=== PATIENT | female | born 1990 | race American Indian/Alaskan Native ===

== ENCOUNTER 2022-06-22 18:27 | Inpatient (IN) | payer SELFPAY ==
[2022-06-22] MEDS ORDERED: SODIUM CHLORIDE 0.9% 500 ML 500 ML IV ONE ×2 (18:46→20:30)
--- NOTE | 2022-06-22 19:14 | XRay Report ---
CHEST 1 VIEW INDICATION: possible Sepsis. COMPARISON: None FINDINGS: SUPPORT DEVICES: None. HEART: Within normal limits. LUNGS/PLEURA: Minimal streaky airspace disease in the right lower lobe with otherwise clear lungs. No pleural effusion. ADDITIONAL FINDINGS: None. IMPRESSION: 1. Lung findings as above. Signer Name: Maco Jackson MD Signed: 06/22/2022 7:09 PM Workstation Name: [id number]
[2022-06-22] MEDS ORDERED: ALBUTEROL 2.5 MG/3 ML NEBU IH ONE ×2 (19:21→20:29)
[2022-06-22] MEDS ORDERED: IPRATROPIUM 0.02% NEBU 2.5 ML IH ONE ×2 (19:21→20:29)
[2022-06-22 19:24] LABS: Basophils % (Auto) 0.4 % (0.0-1.8); Eosinophils % (Auto) 0.7 % (0.0-4.3); Hematocrit 32.6 % (30.3-42.9); Hemoglobin 10.4 gm/dl (10.1-14.3); Lymphocytes # (Auto) 0.6 K/mm3 (1.2-5.4); Lymphocytes % (Auto) 9.2 % (13.4-35.0); Mean Corpuscular HGB Conc 32 % (30-34); Mean Corpuscular Volume 73 fl (79-97); Monocytes # (Auto) 0.9 K/mm3 (0.0-0.8); Monocytes % (Auto) 13.3 % (0.0-7.3); Platelet Count 261 K/mm3 (140-440); Red Blood Count 4.46 M/mm3 (3.65-5.03)
[2022-06-22 19:32] LABS: INR 1.04 (0.87-1.13)
[2022-06-22 19:39] LABS: Alanine Aminotransferase 11 units/L (7-56); Blood Urea Nitrogen 6 mg/dL (7-17); Calcium 8.8 mg/dL (8.4-10.2); Hemolysis Index 11
[2022-06-22 19:54] LABS: BUN/Creatinine Ratio 9
[2022-06-22] MEDS ORDERED: ACETAMINOPHEN 500 MG TAB PO ONE (20:22)
[2022-06-22] MEDS ORDERED: methylPREDNISolone Sod Succinate 125 MG/2 ML INJ IV ONE (20:29)
[2022-06-22] MEDS ORDERED: AZITHROMYCIN/NS 500 MG/250 ML 500 MG/250 ML BAG IV ONE (20:30)
[2022-06-22] MEDS ORDERED: cefTRIAXone/NS 1 GM/50 ML 1 GM/50 ML BAG IV ONE (20:30)
--- NOTE | 2022-06-22 20:32 | Emergency Department Report ---
ED General Adult HPI - General Chief complaint: Dyspnea/Respdistress Stated complaint: ASHTMA ATTACK PUI?: Yes Time Seen by Provider: 06/22/22 20:21 Source: patient, RN notes reviewed Mode of arrival: Ambulatory Limitations: Physical Limitation - History of Present Illness Initial comments: The patient was evaluated in the emergency department for symptoms described in the history of present illness. He/she was evaluated in the context of the global COVID-19 pandemic, which necessitated consideration that the patient might be at risk for infection with the virus that causes COVID-19. Institutional protocols and algorithms that pertain to the evaluation of patients at risk for COVID-19 are in a state of rapid change based on information released by regulatory bodies including the CDC and federal and state organizations. These policies and algorithms were followed during the patient's care in the emergency department. Please note that these policies, procedures and recommendations changed on a rapid basis. During the history and physical examination, I had on complete personal protective equipment. This is a 32-year-old female who states that she is not vaccinated against COVID-19. She has a history of asthma, reactive airways disease, reports that she is not , consumes marijuana and tobacco. She recently relocated here from [place] in December/January of this year. She does not have a local primary care doctor. She presents to the ER today with a complaint of cough, wheezing, fever, shortness of breath x1 day. There is no lifetime history of intubation. She reports that she has been admitted for reactive airways disease in the past She denies loss of taste and smell. Denies sick contacts -: Gradual, days(s) Severity scale (0 -10): 10 Consistency: constant Improves with: rest Worsens with: movement - Related Data Allergies Allergy/AdvReac Type Severity Reaction Status Date / Time No Known Allergies Allergy Unverified 06/22/22 18:38 ED Review of Systems ROS: Stated complaint: ASHTMA ATTACK Other details as noted in HPI Constitutional: chills, fever, malaise, weakness Eyes: denies: vision change ENT: congestion. denies: epistaxis Respiratory: cough, shortness of breath, SOB with exertion, SOB at rest, wheezing Cardiovascular: denies: chest pain Gastrointestinal: denies: abdominal pain, nausea, vomiting Musculoskeletal: myalgia Neurological: weakness ED Past Medical Hx - Past Medical History Hx Asthma: Yes Additional medical history: BRONCHITIS - Surgical History Additional Surgical History: C SECTION ED Physical Exam - General Limitations: No Limitations General appearance: alert, anxious, in distress, obese - Head Head exam: Present: atraumatic, normocephalic - Eye Eye exam: Present: normal appearance, EOMI. Absent: nystagmus - ENT ENT exam: Present: normal exam, normal orophraynx, mucous membranes moist, no rmal external ear exam - Neck Neck exam: Present: normal inspection, full ROM. Absent: tenderness, meningismus - Respiratory Respiratory exam: Present: respiratory distress, wheezes, rhonchi. Absent: decreased breath sounds - Cardiovascular Cardiovascular Exam: Present: normal rhythm, tachycardia, normal heart sounds. Absent: bradycardia, irregular rhythm, systolic murmur, diastolic murmur, rubs, gallop - GI/Abdominal GI/Abdominal exam: Present: soft. Absent: distended, tenderness, guarding, rebound, rigid, pulsatile mass - Extremities Exam Extremities exam: Present: normal inspection, full ROM, other (2+ pulses noted in the bilateral upper and lower extremities. There is no palpable cord. negative Homans sign. Muscular compartments are soft. The pelvis is stable.). Absent: pedal edema, calf tenderness - Back Exam Back exam: Present: normal inspection. Absent: tenderness, CVA tenderness (R), CVA tenderness (L), paraspinal tenderness, vertebral tenderness - Neurological Exam Neurological exam: Present: alert, other (There is no facial droop. The tongue is midline. EOMI. 5/5 strength in 4 extremities) - Psychiatric Psychiatric exam: Present: anxious - Skin Skin exam: Present: warm, dry, intact, normal color. Absent: rash ED Course Vital Signs 06/22/22 18:40 Temperature 102.7 F H Pulse Rate 138 H Respiratory 24 Rate Blood Pressure 140/90 [Right] O2 Sat by Pulse 98 Oximetry ED Medical Decision Making - Lab Data Result diagrams: 06/22/22 19:08 06/22/22 19:08 Vital Signs 06/22/22 18:40 Temperature 102.7 F H Pulse Rate 138 H Respiratory 24 Rate Blood Pressure 140/90 [Right] O2 Sat by Pulse 98 Oximetry Lab Results 06/22/22 06/22/22 06/22/22 Range/Units 19:08 19:08 19:08 WBC 6.7 (4.5-11.0) K/mm3 RBC 4.46 (3.65-5.03) M/mm3 Hgb 10.4 (10.1-14.3) gm/dl Hct 32.6 (30.3-42.9) % MCV 73 L (79-97) fl MCH 23 L (28-32) pg MCHC 32 (30-34) % RDW 18.0 H (13.2-15.2) % Plt Count 261 (140-440) K/mm3 Lymph % (Auto) 9.2 L (13.4-35.0) % [place] % (Auto) 13.3 H (0.0-7.3) % Eos % (Auto) 0.7 (0.0-4.3) % Baso % (Auto) 0.4 (0.0-1.8) % Lymph # (Auto) 0.6 L (1.2-5.4) K/mm3 [place] # (Auto) 0.9 H (0.0-0.8) K/mm3 Eos # (Auto) 0.0 (0.0-0.4) K/mm3 Baso # (Auto) 0.0 (0.0-0.1) K/mm3 Seg Neutrophils % 76.4 H (40.0-70.0) % Seg Neutrophils # 5.1 (1.8-7.7) K/mm3 PT 14.8 (12.2-14.9) Sec. INR 1.04 (0.87-1.13) VBG pH (7.320-7.420) Sodium 133 L (137-145) mmol/L Potassium 3.5 L (3.6-5.0) mmol/L Chloride 103.3 (98-107) mmol/L Carbon Dioxide 20 L (22-30) mmol/L Anion Gap 13 mmol/L BUN 6 L (7-17) mg/dL Creatinine 0.7 (0.6-1.2) mg/dL Estimated GFR > 60 ml/min BUN/Creatinine Ratio 9 % Glucose 141 H (65-100) mg/dL Lactic Acid (0.7-2.0) mmol/L Calcium 8.8 (8.4-10.2) mg/dL Total Bilirubin 0.40 (0.1-1.2) mg/dL AST 15 (5-40) units/L ALT 11 (7-56) units/L Alkaline Phosphatase 139 H (35-129) units/L Total Protein 6.4 (6.3-8.2) g/dL Albumin 4.0 (3.9-5) g/dL Albumin/Globulin Ratio 1.7 % 06/22/22 06/22/22 Range/Units 19:08 19:08 WBC (4.5-11.0) K/mm3 RBC (3.65-5.03) M/mm3 Hgb (10.1-14.3) gm/dl Hct (30.3-42.9) % MCV (79-97) fl MCH (28-32) pg MCHC (30-34) % RDW (13.2-15.2) % Plt Count (140-440) K/mm3 Lymph % (Auto) (13.4-35.0) % [place] % (Auto) (0.0-7.3) % Eos % (Auto) (0.0-4.3) % Baso % (Auto) (0.0-1.8) % Lymph # (Auto) (1.2-5.4) K/mm3 [place] # (Auto) (0.0-0.8) K/mm3 Eos # (Auto) (0.0-0.4) K/mm3 Baso # (Auto) (0.0-0.1) K/mm3 Seg Neutrophils % (40.0-70.0) % Seg Neutrophils # (1.8-7.7) K/mm3 PT (12.2-14.9) Sec. INR (0.87-1.13) VBG pH 7.401 (7.320-7.420) Sodium (137-145) mmol/L Potassium (3.6-5.0) mmol/L Chloride (98-107) mmol/L Carbon Dioxide (22-30) mmol/L Anion Gap mmol/L BUN (7-17) mg/dL Creatinine (0.6-1.2) mg/dL Estimated GFR ml/min BUN/Creatinine Ratio % Glucose (65-100) mg/dL Lactic Acid 1.90 (0.7-2.0) mmol/L Calcium (8.4-10.2) mg/dL Total Bilirubin (0.1-1.2) mg/dL AST (5-40) units/L ALT (7-56) units/L Alkaline Phosphatase (35-129) units/L Total Protein (6.3-8.2) g/dL Albumin (3.9-5) g/dL Albumin/Globulin Ratio % - Radiology Data Radiology results: pending, report reviewed, image reviewed CHEST 1 VIEW INDICATION: possible Sepsis. COMPARISON: None FINDINGS: SUPPORT DEVICES: None. HEART: Within normal limits. LUNGS/PLEURA: Minimal streaky airspace disease in the right lower lobe with otherwise clear lungs. No pleural effusion. ADDITIONAL FINDINGS: None. IMPRESSION: 1. Lung findings as above. Signer Name: Maco Jackson MD Signed: 06/22/2022 6:09 PM - Medical Decision Making Differential diagnosis, including but not limited to: Pneumonia, reactive airways disease, COVID-19, systemic inflammatory response syndrome Assessment and plan: 32-year-old female who is not COVID-19 vaccinated, presenting with acute asthma exacerbation, complicated by acute febrile illness and right lower lobe pneumonia/systemic inflammatory response syndrome. Placed patient on isolation. Obtain appropriate laboratory studies; they reviewed and appreciated. Albuterol, Atrovent, steroids, ceftriaxone and azithromycin. Start gentle IV fluids, and Tylenol for fever and/or pain. At the moment, do not have access to experience rapid COVID-19 testing. Given concern for potential COVID-19, and propensity for COVID-19 patients to develop acute respiratory distress syndrome, hold 30 cc/kg bolus of IV fluid. Patient is agreeable to admission and hospitalization. Hospital physician, Dr. Greg Amin to admit to [facility] Critical Care Time: Yes Critical care time in (mins) excluding proc time.: 35 Critical care attestation.: If time is entered above; I have spent that time in minutes in the direct care of this critically ill patient, excluding procedure time. ED Disposition Clinical Impression: Acute asthma exacerbation, Suspected COVID-19 virus infection, Systemic inflammatory response syndrome (SIRS), COVID-19 vaccination not done, Marijuana use Disposition: ADMITTED INPATIENT Is pt being admited?: Yes Does the pt Need Aspirin: No Condition: Good
[2022-06-22] MEDS ORDERED: MORPHINE 4 MG/1 ML INJ IV PRN (22:11)
[2022-06-22] MEDS ORDERED: MAGNESIUM HYDROXIDE (MOM) ORAL LIQD UDC PO PRN (22:11)
[2022-06-22] MEDS ORDERED: ONDANSETRON 4 MG/2 ML INJ IV PRN (22:11)
[2022-06-22] MEDS ORDERED: ACETAMINOPHEN 325 MG TAB PO PRN (22:11)
[2022-06-22] MEDS ORDERED: MORPHINE 2 MG/1 ML INJ IV PRN (22:11)
--- NOTE | 2022-06-22 22:19 | History and Physical Report ---
History of Present Illness Date of examination: 06/22/22 Date of admission: 06/22/2022 Chief complaint: Cough Fever History of present illness: 32-year-old -[place] female with known history of asthma and who is not vaccinated against COVID 19 presenting to the emergency room today complaining of cough, fever and chills over the last 24 hours. Patient denies any chest pain, no headache or dizziness, no diaphoresis. Denies any nausea or vomiting and no abdominal pain. She indicates she just relocated to [place] from [place] about 4 months ago. Denies any sick contacts. Upon arrival via in the emergency room, patient was found to be tachycardic and tachypneic. She was also found to be wheezing. She subsequently received nebulizing treatment with significant improvement. Patient admits to occasional use of marijuana and tobacco. Work-up in the emergency room today, chest x-ray shows minimal streaky airspace disease in the right lower lobe. Labs shows mild hypokalemia of 3.5. Patient placed on empiric IV antibiotics. Past History Past Medical History: other (Asthma) Past Surgical History: Social history: alcohol abuse Medications and Allergies Allergies Allergy/AdvReac Type Severity Reaction Status Date / Time No Known Allergies Allergy Unverified 06/22/22 18:38 Review of Systems Constitutional: fever, chills Ears, nose, mouth and throat: no nasal congestion, no sore throat Cardiovascular: no chest pain, no palpitations Respiratory: cough, shortness of breath, wheezing Gastrointestinal: no abdominal pain, no nausea, no vomiting, no diarrhea Genitourinary Female: no pelvic pain, no flank pain, no dysuria, no hematuria Musculoskeletal: no neck pain, no low back pain Integumentary: no rash, no pruritis Neurological: no headaches, no confusion Psychiatric: no anxiety, no depression Endocrine: no polyphagia, no polydipsia, no polyuria, no nocturia Exam - Constitutional Vitals: Temp Pulse Resp BP Pulse Ox 102.7 F H 138 H 24 140/90 98 06/22/22 18:40 06/22/22 18:40 06/22/22 18:40 06/22/22 18:40 06/22/22 18:40 General appearance: Present: no acute distress, well-nourished - EENT Eyes: Present: PERRL, EOM intact. Absent: scleral icterus ENT: hearing intact, clear oral mucosa, dentition normal - Neck Neck: Present: supple, normal ROM - Respiratory Respiratory effort: normal Respiratory: bilateral: wheezing - Cardiovascular Rhythm: regular Heart Sounds: Present: S1 & S2. Absent: gallop, systolic murmur, diastolic murmur, rub, click - Extremities Extremities: no ischemia, pulses intact, pulses symmetrical, No edema, normal temperature, normal color, Full ROM Peripheral Pulses: within normal limits - Abdominal General gastrointestinal: Present: soft, non-tender, non-distended, normal bowel sounds. Absent: mass - Integumentary Integumentary: Present: clear, warm, dry, normal turgor. Absent: rash - Musculoskeletal Musculoskeletal: strength equal bilaterally - Psychiatric Psychiatric: appropriate mood/affect, intact judgment & insight, memory intact, cooperative - Neurologic Neurologic: CNII-XII intact Results - Labs CBC & Chem 7: 06/22/22 19:08 06/22/22 19:08 Labs: Abnormal lab results 06/22/22 06/22/22 Range/Units 19:08 19:08 MCV 73 L (79-97) fl MCH 23 L (28-32) pg RDW 18.0 H (13.2-15.2) % Lymph % (Auto) 9.2 L (13.4-35.0) % [place] % (Auto) 13.3 H (0.0-7.3) % Lymph # (Auto) 0.6 L (1.2-5.4) K/mm3 [place] # (Auto) 0.9 H (0.0-0.8) K/mm3 Seg Neutrophils % 76.4 H (40.0-70.0) % Sodium 133 L (137-145) mmol/L Potassium 3.5 L (3.6-5.0) mmol/L Carbon Dioxide 20 L (22-30) mmol/L BUN 6 L (7-17) mg/dL Glucose 141 H (65-100) mg/dL Alkaline Phosphatase 139 H (35-129) units/L Assessment and Plan Assessment: 1.Asthma Exacerbation 2.Pneumonia 3.Sepsis 4.PUI Plan: 1. Patient admitted and placed on empiric IV antibiotics for underlying pneumonia.. 2. Patient started on nebulizing treatments and IV steroid. 3. We will keep O2 saturation greater equal to 92%. 4. Patient will also be screened for COVID-19. DVT Prophylaxis:SQ Heparin Code Status: Full Code
[2022-06-23] MEDS: IPRATROPIUM/ALBUTEROL SULFATE 3 ML AMPUL.NEB IH SCH ×3 (02:47→15:00)
[2022-06-23] MEDS: SODIUM CHLORIDE 0.9% 1000 ML 1,000 ML IV SCH ×2 (03:41→20:16)
[2022-06-23] MEDS: methylPREDNISolone Sod Succinate 40 MG/1 ML INJ IV SCH ×3 (05:26→21:38)
[2022-06-23 07:23] LABS: Blood Urea Nitrogen 7 mg/dL (7-17); Calcium 8.9 mg/dL (8.4-10.2); Hemolysis Index 0
[2022-06-23 07:27] LABS: BUN/Creatinine Ratio 14
[2022-06-23] MEDS: AZITHROMYCIN 250 MG TAB PO SCH (10:52)
[2022-06-23] MEDS: cefTRIAXone/NS 2 GM/100 ML 2 GM/100 ML BAG IV SCH (10:52)
[2022-06-23 13:16] LABS: Mucus,Urine FEW /HPF
[2022-06-23 13:37] LABS: Color,Urine Straw (Yellow)
[2022-06-23] MEDS: HEPARIN 5,000 UNIT/1 ML VIAL SUB-Q SCH ×2 (14:36→21:38)
--- NOTE | 2022-06-23 16:22 | Progress Note ---
Assessment and Plan 32-year-old -[place] female with known history of asthma, tobacco abuse and who is not vaccinated against COVID 19 presenting to the emergency room complaining of cough, fever and chills over the last 24 hours. Upon arrival via in the emergency room, patient was found to be tachycardic and tachypneic. She was also found to be wheezing. She subsequently received nebulizing treatment with significant improvement. Work-up in the emergency room, chest x-ray shows minimal streaky airspace disease in the right lower lobe. Labs shows mild hypokalemia of 3.5. Patient placed on empiric IV antibiotics. Ordered Covid19 test and it is positive. Assessment: -- Acute Asthma Exacerbation -- RLL Pneumonia --Sepsis -- COVID 19 positive --Obesity Plan: -- Patient admitted and placed on empiric IV antibiotics for underlying pneumonia.. -- Patient started on nebulizing treatments and IV steroid. --We will keep O2 saturation greater equal to 92%. -- Cont supportive care for COVID-19 as she is in [place]. --Monitor o/n for worsening symptoms- if clinically stable dc home tomorrow DVT Prophylaxis:SQ Heparin Code Status: Full Code Subjective Date of service: 06/23/22 Interval history: Patient seen and examined. Medical records and medication list reviewed. No acute event overnight noted by the RN. Patient complains of cough and wheezing. Patient is tolerating diet. Discussed plan of care at bedside with patient. Objective - Exam Narrative Exam: Limited physical exam due to COVID-19 pandemic to minimize transmission of the disease and to preserve PPE. Vital reviewed and stable. GENERAL: well-developed obese -[place] female sitting on bed appeared to be in no discomfort. HEENT: Normocephalic. Atraumatic. NECK: Supple. CHEST/LUNGS: breathing nonlabored. HEART/CARDIOVASCULAR: Heart rate stable on telemetry ABDOMEN: Visibly not distended SKIN: There is no rash NEURO: No focal motor deficit. Follows command. MUSCULOSKELETAL: No joint effusion EXTRIMITY: No swelling, no cyanosis or clubbing. PSYCH: Cooperative. - Constitutional Vitals: Vital Signs - 12hr 06/23/22 06/23/22 08:40 15:00 Pulse Rate [ 98 H 84 Throughout] Respiratory 36 H 18 Rate [ Throughout] - Labs CBC & Chem 7: 06/22/22 19:08 06/23/22 06:40 Labs: Abnormal lab results 06/22/22 06/22/22 06/23/22 Range/Units 19:08 19:08 06:40 MCV 73 L (79-97) fl MCH 23 L (28-32) pg RDW 18.0 H (13.2-15.2) % Lymph % (Auto) 9.2 L (13.4-35.0) % [place] % (Auto) 13.3 H (0.0-7.3) % Lymph # (Auto) 0.6 L (1.2-5.4) K/mm3 [place] # (Auto) 0.9 H (0.0-0.8) K/mm3 Seg Neutrophils % 76.4 H (40.0-70.0) % Sodium 133 L (137-145) mmol/L Potassium 3.5 L (3.6-5.0) mmol/L Chloride 107.8 H (98-107) mmol/L Carbon Dioxide 20 L 21 L (22-30) mmol/L BUN 6 L (7-17) mg/dL Creatinine 0.5 L (0.6-1.2) mg/dL Glucose 141 H 169 H (65-100) mg/dL Alkaline Phosphatase 139 H (35-129) units/L Coronavirus (PCR) (Negative) 06/23/22 Range/Units 10:58 MCV (79-97) fl MCH (28-32) pg RDW (13.2-15.2) % Lymph % (Auto) (13.4-35.0) % [place] % (Auto) (0.0-7.3) % Lymph # (Auto) (1.2-5.4) K/mm3 [place] # (Auto) (0.0-0.8) K/mm3 Seg Neutrophils % (40.0-70.0) % Sodium (137-145) mmol/L Potassium (3.6-5.0) mmol/L Chloride (98-107) mmol/L Carbon Dioxide (22-30) mmol/L BUN (7-17) mg/dL Creatinine (0.6-1.2) mg/dL Glucose (65-100) mg/dL Alkaline Phosphatase (35-129) units/L Coronavirus (PCR) Positive A (Negative)
[2022-06-23] MEDS ORDERED: ALBUTEROL 8.5 GM MDI INHALATION IH ONE (19:14)
[2022-06-24] MEDS: methylPREDNISolone Sod Succinate 40 MG/1 ML INJ IV SCH (05:54)
[2022-06-24] MEDS: HEPARIN 5,000 UNIT/1 ML VIAL SUB-Q SCH ×2 (05:55→13:24)
[2022-06-24] MEDS: cefTRIAXone/NS 2 GM/100 ML 2 GM/100 ML BAG IV SCH (10:17)
[2022-06-24] MEDS: AZITHROMYCIN 250 MG TAB PO SCH (10:18)
[2022-06-24 10:19] VITALS: BP 114/68
--- NOTE | 2022-06-24 12:55 | Discharge Summary ---
Providers - Providers Date of Admission: 06/22/22 22:11 Date of discharge: 06/24/22 Attending physician: FRANCISCO ELISE Primary care physician: MAVIS HERRING MD Hospitalization Condition: Good Disposition: 01 HOME / SELF CARE / HOMELESS Exam - Constitutional Vitals: Temp Pulse Resp BP Pulse Ox 98.3 F 99 H 16 114/68 95 06/24/22 10:15 06/24/22 10:15 06/24/22 10:15 06/24/22 10:15 06/24/22 10:15 Plan Follow up with: PRIMARY CAREMD [Primary Care Provider] - 3-5 Days
--- NOTE | 2022-06-24 22:49 | Electrocardiograph Report ---
[facility] Test Date: 2022-06-24 Test Time: 07:14:02 Pat Name: STACY PUGH Department: Room: [facility] Gender: F Seasonal Warehouse Associate: MISTY : 1990 Requested By: MOUNIKA EVANGELISTA Order Number: [id number] Reading MD: Johanny Sewell Measurements Intervals [place] Rate: 67 P: 19 NM: 145 QRS: 61 QRSD: 84 T: 57 QT: 429 QTc: 452 Interpretive Statements Sinus arrhythmia No previous ECG available for comparison Electronically Signed On 06-24-2022 22:48:53 EDT by Johanny Sewell
== END 2022-06-24 16:49 | disposition home or self-care (01) | DRG 871 ==
LOC: ED 18:27 → 3A 22:11
PROVIDERS: ADMIT Internal Medicine Geriatric Medicine; ATTEND Internal Medicine
DX: A41.9 Sepsis, unspecified organism (principal); J12.82 Pneumonia due to coronavirus disease 2019; U07.1 COVID-19; J45.901 Unspecified asthma with (acute) exacerbation; F12.90 Cannabis use, unspecified, uncomplicated; E66.9 Obesity, unspecified; Z68.31 Body mass index [BMI] 31.0-31.9, adult
CPT/HCPCS: 36415; 71045; 80048; 80053; 81001; 82140; 82805; 84702; 85025; 85610; 87040; 93005; 94640; 94644; 99291; G0378; J0456; J0696; J1644; J2920; J2930; J7030; J7040; U0003